=== PATIENT | male | born 1980 | race Caucasian/White ===

== ENCOUNTER → 2017-06-12 | Outpatient (CLI) | payer OTHER ==
--- NOTE | 2017-06-12 10:47 | DIAGNOSTIC IMAGING REPORT ---
L-SPINE MIN 4 VIEWS ROUTINE CLINICAL HISTORY: LUMBAR PAIN AFTER WORK RELATED INJURY COMPARISON STUDY: No previous studies for comparison. FINDINGS: No fractures or dislocations are visualized. There is no significant disc narrowing. IMPRESSION: Unremarkable conventional radiographic evaluation of the lumbar spine. Electronically signed by: Luther Crabtree M.D. 06/12/2017 10:46 AM Dictated Date/Time: 06/12/2017 10:45 AM
== END | disposition home or self-care (01) ==
LOC: C.RAD1850 10:34
PROVIDERS: ATTEND Nurse Practitioner Family
DX: M54.5 Low back pain (principal); X58.XXXA Exposure to other specified factors, initial encounter